=== PATIENT | male | born 1980 ===

== ENCOUNTER 2017-02-23 22:38 | Emergency (ER) | payer OTHER ==
[2017-02-23 23:38] VITALS: BP 150/88; PULSE 76; RESP 18; TEMP 98.3; O2SAT 100
--- NOTE | 2017-02-24 00:04 | C.PDOC ---
History Of Present Illness 36 year old male presents to the ER with complaint of right ear pain for the past 2 days. Patient also reports having some discharge from the ear. He denies fever, sore throat, cough, or runny nose. Time Seen by Provider: 02/23/17 23:39 Chief Complaint (Nursing): ENT Problem History Per: Patient History/Exam Limitations: None Onset/Duration Of Symptoms: Days Current Symptoms Are (Timing): Still Present Quality (Ear): Discharge Symptoms Have Been: Continuous Severity: Mild Past Medical History Reviewed: Historical Data, Nursing Documentation, Vital Signs Vital Signs: Last Vital Signs Temp 98.3 F 02/23/17 23:36 Pulse 76 02/23/17 23:36 Resp 18 02/23/17 23:36 BP 150/88 02/23/17 23:36 Pulse Ox 100 02/24/17 01:16 - Medical History PMH: No Chronic Diseases Surgical History: No Surg Hx Family History: States: No Known Family Hx - Social History Hx Alcohol Use: No Hx Substance Use: No - Immunization History Hx Tetanus Toxoid Vaccination: No Hx Influenza Vaccination: No Hx Pneumococcal Vaccination: No Review Of Systems Except As Marked, All Systems Reviewed And Found Negative. Constitutional: Negative for: Fever, Chills ENT: Positive for: Ear Pain, Ear Discharge. Negative for: Nose Congestion, Throat Pain Respiratory: Negative for: Cough, Shortness of Breath Skin: Negative for: Rash Physical Exam - Physical Exam Appears: Well, Non-toxic, No Acute Distress Skin: Normal Color, Warm, Dry, No Rash Head: Atraumatic, Normacephalic Ear(s): Left: Normal, Right: Other (Erythematous, swollen canal with purulent discharge. Opaque TM. No mastoid tenderness.) Oral Mucosa: Moist Throat: Normal, No Erythema, No Exudate Neck: Normal, Supple Cardiovascular: Rhythm Regular Respiratory: Normal Breath Sounds, No Rales, No Rhonchi, No Wheezing Neurological/Psych: Oriented x3 ED Course And Treatment O2 Sat by Pulse Oximetry: 100 (RA) Pulse Ox Interpretation: Normal Progress Note: Patient given PO Ciprofloxacin and PO Ibuprofen. Rxs given for Cipro PO, ofloxacin otic and ibuprofen. Patient instructed to follow up with ENT within 1 week, and he understands he should return to ED if symptoms worsen. Reevaluation Time: 00:20 Reassessment Condition: Improved Disposition Counseled Patient/Family Regarding: Diagnosis, Need For Followup, Rx Given - Disposition Referrals: Dawson Hinton MD [Staff Provider] - Disposition: HOME/ ROUTINE Disposition Time: 00:20 Condition: STABLE Additional Instructions: FOLLOW UP WITH ENT WITHIN 1 WEEK USE MEDICATIONS DIRECTED RETURN TO ER IF SYMPTOMS WORSEN Prescriptions: Ciprofloxacin [Cipro] 1 tab PO BID #14 tab Ibuprofen [Motrin Tab] 600 mg PO Q6 PRN #20 tab PRN Reason: Pain, Mild (1-3) Ofloxacin Otic 0.3% [Floxin 0.3% Otic Soln] 10 drop GT ONCE #1 bottle Instructions: Otitis Externa (ED) Forms: [employer] (Wolof) Print Language: GREEK - Clinical Impression Clinical Impression: Otitis externa - Scribe Statement The provider has reviewed the documentation as recorded by the Scribmonroe Coleman All medical record entries made by the Scribe were at my direction and personally dictated by me. I have reviewed the chart and agree that the record accurately reflects my personal performance of the history, physical exam, medical decision making, and the department course for this patient. I have also personally directed, reviewed, and agree with the discharge instructions and disposition.
== END 2017-02-24 00:21 | disposition home or self-care (01) ==
LOC: C.ER 22:38
DX: H60.91 Unspecified otitis externa, right ear (principal)